=== PATIENT | female | born 1960 | race Caucasian/White ===

== ENCOUNTER 2017-06-02 22:53 | Observation (INO) | payer BC, MEDICARE, MEDICAID ==
[~2017-06-02] VITALS: Ht 144.8 cm; Wt 64.4 kg
--- NOTE | ~2017-06-02 | CON ---
PATIENT'S NAME: VERONICA [facility] AGE: 56 Y [address] ROOM: [place] [address] LOCATION: [facility] ADMIT DATE: 06/02/2017 Consultation DISCHARGE DATE: FAMILY PHYSICIAN: PHYSICIAN, UNKNOWN ATTENDING PHYSICIAN: Mohamud Patrick DATE OF CONSULTATION: 06/03/2017 REFERRING PHYSICIAN: ERIN JEAN This is a [facility] Nephrology Consultation. REASON FOR CONSULTATION: End-stage renal disease, need for hemodialysis therapy. HISTORY OF PRESENT ILLNESS: This is a 56-year-old female with a longstanding history of hypertensive renal disease on chronic hemodialysis on Saturday, , and Saturday. The patient was transferred to [facility] from [facility] due to higher level of care, Nephrology, and dialysis services. The patient does report that she has been traveling from her home in [place] to [place], [place] a couple of days ago. She was last dialyzed on of last week. She does usually dialyze on Saturday, however, due to her travel she did miss her dialysis. She has reported increase in nasal congestion as well as cough since her trip started. Overall, her dialysis has been routine. She does deny any increasing shortness of breath or itching. She has continued her medications as previously prescribed. While at [facility], a variety of laboratory and x-ray was performed noting the patient to have acute bronchitis. The patient is coughing currently on exam and has been receiving oral Robitussin for this. Due to her history of end-stage renal disease needing hemodialysis therapy, Nephrology has been asked to consult on the patient and manage her hemodialysis while she is hospitalized. PAST MEDICAL HISTORY: As listed above includin. Hypertension. 2. Hypertensive kidney disease. 3. End-stage renal disease, on hemodialysis. 4. Seasonal allergic rhinitis. 5. Hypothyroidism. 6. Hyperlipidemia. ALLERGIES: NONE TO MEDICATION. PATIENT'S NAME: VER[facility]ICA [facility] AGE: 56 Y [address] ROOM: [place] [address] LOCATION: [facility] ADMIT DATE: 06/02/2017 Consultation DISCHARGE DATE: FAMILY PHYSICIAN: PHYSICIAN, UNKNOWN ATTENDING PHYSICIAN: Mohamud Patrick MEDICATIONS: Current home medications include: 1. Amlodipine 10 mg daily. 2. Calcium acetate 3 tablets p.o. t.i.d. with meals. 3. Clonidine 0.2 mg daily. 4. Levothyroxine 100 mcg p.o. daily. 5. Losartan 100 mg daily. 6. Pravastatin 20 mg daily. 7. Sodium bicarbonate 650 mg one tablet p.o. every morning and every night. FAMILY HISTORY: Reviewed and is negative for any history of kidney disease or dialysis. SOCIAL HISTORY: The patient does live in [place]. She is a nonsmoker. There is no listed history of illicit drug use or alcohol use. REVIEW OF SYSTEMS: GENERAL: Complains of increase in fatigue and malaise. EYES: No double vision or blurred vision. NOSE: No epistaxis or rhinorrhea. MOUTH: No gingival bleeding. THROAT: No sore throat, but does have a minimal productive cough. CARDIOVASCULAR: No chest pain or palpitations. No presyncope or syncope. GASTROINTESTINAL: No nausea, vomiting, or diarrhea. GENITOURINARY: Denies any frequency, urgency, or hesitancy. MUSCULOSKELETAL: Complains of generalized arthralgias. NEUROLOGICAL: No numbness or tingling in upper or lower extremities. HEMATOLOGICAL: No bruising or easy bleeding. IMMUNOLOGICAL: No history of recent infections other than what is listed in the HPI, acute bronchitis. PHYSICAL EXAMINATION: VITAL SIGNS: Blood pressure shows 151/75, heart rate 92, respirations 15, and temperature is 97.8. GENERAL: On exam, this is a very alert and oriented female, who appears her approximate stated age, is in no acute distress. HEENT: Her head is normocephalic and atraumatic. Eyes: Pupils are equal, round, and reactive to light and accommodation. Nose: Midline mouth. No gingival bleeding. Throat without lymphadenopathy or carotid bruits. LUNGS: Lung sounds are clear to auscultation, anterior and posterior. Breaths are nonlabored. CARDIOVASCULAR: Regular rate and rhythm with no appreciable murmurs, rubs, or thrills. ABDOMEN: Soft, nontender, and nondistended. Bowel sounds are positive. EXTREMITIES: No signs of peripheral edema, clubbing, or cyanosis. NEUROLOGICAL: Cranial nerves 2 through 12 are grossly intact. PATIENT'S NAME: VER[facility]ICA [facility] AGE: 56 Y [address] ROOM: [address] [address] LOCATION: [facility] ADMIT DATE: 06/02/2017 Consultation DISCHARGE DATE: FAMILY PHYSICIAN: PHYSICIAN, UNKNOWN ATTENDING PHYSICIAN: Mohamud Patrick LABORATORY DATA: Laboratory shows proBNP of 41,196. WBC 6.1, hemoglobin 10.4, platelets 212, and hematocrit 30.5. Glucose 97, BUN is 54, creatinine 12.4, sodium 132, potassium 4.0, chloride 96, CO2 of 23, calcium 8.7, albumin is 3.4, and phos 3.6. ASSESSMENT AND PLAN: 1. End-stage renal disease, on hemodialysis therapy. We will obtain the patient's outpatient clinical record from [place], [place]. The patient does normally dialyze Saturday, , and Saturday for 2 hours. We will continue with her current plan of care and monitor her throughout the therapy. 2. Acute bronchitis. The patient is to continue with symptomatic measures including cough syrup for congestion as well as hydration per primary team. 3. Renovascular hypertension. This is stable currently. Continue current medications. 4. Hypothyroidism. The patient is to continue her current medications. This patient's care has been collaborated in conjunction with Dr. Jean as well as me. We will plan further recommendations as they are forthcoming. In the interim, the patient is to continue her normal dialysis regimen of 2 hours on a 3K bath with a blood flow rate of 500 and dialysis rate of 800. BIRGIT DAS DNP, TRANSLITERATOR FOR [facility] MD FRANDY [employer]/modl /[id number] d: 06/03/17 1241 t: 06/06/17 1620, CONSULTATION REPORT
--- NOTE | ~2017-06-02 | HP ---
PATIENT'S NAME: VERONICA LOPES [facility] AGE: 56 Y [address] ROOM: [id number] [place], [place] [address] [place] [facility] [place] DATE: 06/02/2017 History & Physical DISCHARGE DATE: FAMILY PHYSICIAN: PHYSICIAN, UNKNOWN ATTENDING PHYSICIAN: Mohamud Patrick DATE OF SERVICE: CHIEF COMPLAINT: Generalized weakness and intractable coughing. HISTORY OF PRESENTING ILLNESS: This 56-year-old female with history of hypertensive renal disease on permanent hemodialysis, who was transferred to [facility] from [facility] this evening for the purpose of Nephrology care and hemodialysis. Briefly, she had traveled from her home in [place] to [place] a couple of days ago. She last had dialysis on . She typically dialyzes Tuesdays, , Saturdays, and Sundays. She states that she was dialyzed "extra long," anticipating that she would miss dialysis on Saturday while she traveled back. She indicates that she has missed a few dialysis appointments in the past and never felt so poorly. This evening, because of progressive weakness, malaise, and lingering cough, she went to the emergency room at [facility]. While she was there, a variety of laboratory studies were done and an x-ray was performed. It was felt that she had acute bronchitis. The patient requested to leave the hospital and travel back to [place] in order to make her dialysis appointment tomorrow there. The physician felt that it was unsafe and it was requested that she be transferred here for her Nephrology care and dialysis. Dr. Ross, Nephrology, agreed to dialyze her here tomorrow, but requested that I admit her for medical management. On her arrival to the floor, she complains of feeling unwell. She complains of some weakness, but she has not fallen. Her primary complaint is upper respiratory congestion, soreness in her throat, and cough. The cough is minimally productive. She was seen and evaluated by her own dust collector on Saturday and treated with allergy medicine and expectorant. She states this helped only a little bit. She does complain of some difficulties with swallowing and feels as though sometimes food goes "down the wrong pipe." She denies jamshid chest pain, but it does hurt to breathe. She denies any abdominal pain. She has not eaten well for a few days. She stools normally. She denies numbness or tingling in her extremities or any other associated physical or constitutional complaints. She does void in small amounts. PATIENT'S NAME: VERONICA LOPES [place] AGE: 56 Y [address] ROOM: [place] [address] [place] [facility] [place]: 06/02/2017 History & Physical DISCHARGE DATE: FAMILY PHYSICIAN: PHYSICIAN, UNKNOWN ATTENDING PHYSICIAN: Mohamud Patrick ALLERGIES: NO KNOWN DRUG ALLERGIES. ILLNESSES: 1. Hypertension. 2. Hypertensive kidney disease. 3. End-stage renal disease, on hemodialysis. 4. Seasonal allergic rhinitis. 5. Hypothyroidism. 6. Hyperlipidemia. CURRENT MEDICATIONS: 1. Amlodipine 10 mg p.o. daily. 2. Calcium 3 tablets p.o. t.i.d. with meals. 3. Clonidine 0.2 mg p.o. q.a.m. 4. Levothyroxine 100 mcg p.o. q.a.m. 5. Losartan 100 mg p.o. q.a.m. 6. Pravastatin 20 mg p.o. q.a.m. 7. Sodium bicarbonate 1 tablet p.o. q.a.m. and q.p.m. FAMILY HISTORY: Negative for heart disease or stroke. SOCIAL HISTORY: She lives in [place]. She is a nonsmoker. There is no significant history of alcohol use. She was traveling to [place], [place], and home again with her daughter, who provides good social assistance. REVIEW OF SYSTEMS: As per HPI. All other organ systems reviewed and are negative. OBJECTIVE: VITAL SIGNS: Temperature 99.7, pulse 103, respirations 22, blood pressure 161/89, and O2 saturation 96% on room air. GENERAL: She is anxious, but cooperative, lying in the bed, in no acute distress. SKIN: Supple, brown, warm, and dry. There are no obvious rashes. HEENT: Otherwise, normocephalic. Sclerae nonicteric. Pupils equal, round, and reactive to light and accommodation. Extraocular movements appear intact. Nasal turbinates normal in appearance. Oropharynx is clear. Mucous membranes are pink and moist. NECK: Supple. Plethoric. No masses or adenopathy. No thyromegaly. No JVD. CHEST: Chest wall is symmetrical. HEART: Regular without murmurs. LUNGS: Coarse. Diminished. No crackles or wheezes are heard. PATIENT'S NAME: VERONICA LOPES [place] AGE: 56 Y [address] ROOM: [address] [address] [place] [facility] [place]: 06/02/2017 History & Physical DISCHARGE DATE: FAMILY PHYSICIAN: PHYSICIAN, UNKNOWN ATTENDING PHYSICIAN: Mohamud Patrick ABDOMEN: Soft, protuberant, and nontender. Bowel sounds present. No mass or hepatosplenomegaly. AND RECTAL: Not done. EXTREMITIES: Display trace pitting edema. No cyanosis. NEUROLOGIC: No focal deficits. LABORATORY AND X-RAY DATA: From [facility]. CBC showed a white blood cell count of 6.7, hemoglobin of 10.4, hematocrit of 31, and platelets 215. Chemistries revealed BUN and creatinine of 49 and 12.03 respectively. Sodium and potassium 133 and 4.3. Chloride and CO2 of 92 and 20 respectively. Bilirubin is 0.6. AST and ALT 21 and 11 respectively. Glucose 117. Sedimentation rate and C-reactive protein were significantly elevated at 78 of 15.5. Lactate was normal at 0.8. Procalcitonin 2.71. PT and PTT 11.1 and 31.9 with an INR of 1.0. Urinalysis is essentially unremarkable. ASSESSMENT AND PLAN: 1. Generalized weakness. I suspect that she is mildly uremic. We will admit for observation. We will provide some supportive cares tonight, but hold off on aggressive IV fluid hydration therapy. We will request consultation by Nephrology and plan for hemodialysis tomorrow. She will likely be able to be safely discharged to home after that. 2. Acute bronchitis. Plan to continue with symptomatic measures including guaifenesin for relief of congestion. We will also encourage rest and hydration. 3. Essential hypertension. Appears to be adequately controlled. We will monitor the trend and make adjustments if necessary. 4. End-stage renal disease, on hemodialysis. Plan to continue with hemodialysis as above. 5. Dysphagia, chronic, difficult to discern. We will monitor her swallowing here. She indicates that she does not want to pursue any sort of aggressive evaluation here in [place] and would prefer to defer that to her primary care provider in [place]. I think that is reasonable. 6. Hypothyroidism, adequately replaced. Continue with thyroid supplementation. 7. Deep venous thrombosis prophylaxis. We will follow the VTE protocol. MD [employer]I [employer]/rochelle PATIENT'S NAME: VERONICA LOPES [place] AGE: 56 Y [address] ROOM: [place] [address] [place] [facility] [place]: 06/02/2017 History & Physical DISCHARGE DATE: FAMILY PHYSICIAN: PHYSICIAN, UNKNOWN ATTENDING PHYSICIAN: Mohamud Patrick /[id number] D: 133 T: [id number] HISTORY & PHYSICAL
[2017-06-02] MEDS ORDERED: PHOSLO667 MG PO (23:39)
[2017-06-02] MEDS ORDERED: SODIUM BICARBO650 MG PO ×2 (23:39→23:48)
[2017-06-02] MEDS ORDERED: PRAVACHOL20 MG PO (23:49)
[2017-06-02] MEDS ORDERED: NORVASC10 MG PO (23:49)
[2017-06-02] MEDS ORDERED: CATAPRES0.1 MG PO (23:50)
[2017-06-02] MEDS ORDERED: LEVOTHROID (S100 MCG PO (23:51)
[2017-06-02] MEDS ORDERED: COZAAR100 MG PO (23:51)
--- NOTE | 2017-06-03 01:00 | NUR ---
ADMIT FOR WEAKNESS, COUGH AND NEED FOR HEMODIALYSIS. MEDICAL HX INCLUDES: COUGH, HTN, TACHYCARDIA, EDEMA, NAUSEA, VOMITING, FISTULA, ESRD, HEMODIALYSIS.
[2017-06-03 04:42] LABS: BASOPHIL % 0.2 %; EOSINOPHIL # 0.2 K/uL (0.0-0.5); HEMATOCRIT 30.5 % (33.0-46.0); HEMOGLOBIN 10.4 g/dL (10.0-15.0); IMMATURE GRANULOCYTE % 0.7 %; LYMPHOCYTE # 0.8 K/uL (0.8-4.0); LYMPHOCYTE % 13.4 %; MCH 31.3 pg (27.0-34.0); MCHC 34.1 gm/dL (32.0-36.5); MCV 91.9 fl (83.0-98.0); MONOCYTE # 0.5 K/uL (0.0-1.0); MONOCYTE % 8.6 %; MPV 10.1 fl (9.4-12.4); NEUTROPHIL # (ANC) 4.4 K/uL (1.8-7.8); NEUTROPHIL % 73.1 %; NRBC % 0 /100WBC (0-0.00); PLATELET COUNT 212 K/uL (150-450); RBC 3.32 M/uL (3.50-5.50); RDW-CV 13.8 % (11.9-14.6); WBC 6.1 K/uL (4.0-11.0)
[2017-06-03 05:01] LABS: ALBUMIN 3.4 gm/dL (3.5-5.0); CALCIUM 8.7 mg/dL (8.5-10.5); PHOSPHORUS 3.6 mg/dL (2.5-4.9)
[2017-06-03 05:11] LABS: CREATININE 12.4 mg/dL (0.5-1.1)
--- NOTE | 2017-06-03 05:29 | NUR ---
Significant Event: PATIENT IS FROM [facility]. SHE CAME TO US FROM [facility]. SHE IS COMPLAINING OF A COUGH AND WEAKNESS. SHE HAS HAD A POOR APPETTE WIHT NAUSEA AND VOMITING X 4 DAYS. RENAL DIET. IS ON DIALYSIS MWF. SHE DOES PRODUCE URINE. FISTULA TO L ARM WITH GOOD BRUIT AND THRILL. IV TO R HAND. PLAN IS FOR PATENT TO HAVE DIALYSIS THIS AM AND BE DISMISSED AFTER COMPLETED. PLEASANT AND COOPERATIVE WITH CAREWS. Follow up:
[2017-06-03] MEDS ORDERED: DRISDOL 5050000 UNIT PO (11:46)
--- NOTE | 2017-06-03 13:26 | NUR ---
Patient was dismissed home in stable condition. IV was removed. Education given about preventing DVTs. No medications were changed, follow up with her primary care provider in 1-2 days. She did receive dialysis this AM. 500ml were pulled off. One dose of robitussen given while in dialysis. Labs were printed off and sent with the daughter. Dialysis will fax over all their information tonight to her dialysis center.
== END 2017-06-03 12:30 | disposition disaster alternative care site (69) ==
LOC: GMSU 22:53
PROVIDERS: ADMIT Family Medicine
DX: R53.1 Weakness (principal); J20.9 Acute bronchitis, unspecified; I12.0 Hypertensive chronic kidney disease with stage 5 chronic kidney disease or end stage renal disease; N18.6 End stage renal disease; R13.10 Dysphagia, unspecified; E03.9 Hypothyroidism, unspecified; E78.5 Hyperlipidemia, unspecified; Z99.2 Dependence on renal dialysis; Z79.899 Other long term (current) drug therapy
CPT/HCPCS: G0378; J1644